=== PATIENT | female | born 1980 | race Caucasian/White ===

== ENCOUNTER 2023-10-18 17:31 | Emergency (ER) | payer OTHER, SELFPAY ==
[2023-10-18] MEDS ORDERED: Ketorolac Tromethamine 30 MG (1 mL) VIAL ONE (17:56)
[2023-10-18] MEDS ORDERED: HYDROcodone/Acetaminophen 5/325 mg Tablet ONE ×2 (18:43→19:30)
[2023-10-18] MEDS ORDERED: Ondansetron ODT 4 MG TAB ONE (20:12)
== END 2023-10-18 21:10 | disposition home or self-care (01) ==
LOC: NAV ERS 17:31
DX: S52.121A Displaced fracture of head of right radius, initial encounter for closed fracture (principal); W18.30XA Fall on same level, unspecified, initial encounter
CPT/HCPCS: 29105; 96372; J1885; Q0162